=== PATIENT | female | born 1945 | race Caucasian/White ===

== ENCOUNTER 2019-04-18 07:00 | Day surgery (SDC) | payer MEDICARE, MEDICAID ==
[~2019-04-18] VITALS: Ht 175.3 cm; Wt 96.2 kg
[2019-04-18] VITALS (8 sets, daily range): BP systolic 114–144; BP diastolic 58–87
[~2019-04-18 07:00] MED LIST: HYDR-4383 PO; MULT-15 PO; PHEN-786 PO; ZOLP5TAB2 PO
[2019-04-18] MEDS ORDERED: SPIR50TA5 PO (07:55)
[2019-04-18] MEDS ORDERED: FURO-150 PO (07:55)
[2019-04-18] MEDS ORDERED: albumin 25% 100mL bottle x 1 IV PRN (08:10)
[2019-04-18] MEDS ORDERED: normal saline 1000ml 1,000 ML IV PRN (08:10)
== END 2019-04-18 10:15 | disposition home or self-care (01) ==
LOC: SSTAY O 07:00
PROVIDERS: ATTEND Radiology Diagnostic Radiology
DX: R18.8 Other ascites (principal); K74.60 Unspecified cirrhosis of liver; Z90.49 Acquired absence of other specified parts of digestive tract; Z88.8 Allergy status to other drugs, medicaments and biological substances; Z79.899 Other long term (current) drug therapy; Z86.19 Personal history of other infectious and parasitic diseases
CPT/HCPCS: 49083; C1729; J7030

== ENCOUNTER 2019-04-30 07:55 | Day surgery (SDC) | payer MEDICARE, MEDICAID ==
[2019-04-30] VITALS (7 sets, daily range): BP systolic 123–160; BP diastolic 59–76
[~2019-04-30] VITALS: Ht 175.3 cm; Wt 96.5 kg
[~2019-04-30 07:55] MED LIST changes: +FURO-150 PO; -HYDR-4383 PO; -PHEN-786 PO; +SPIR50TA5 PO; -ZOLP5TAB2 PO
[2019-04-30] MEDS ORDERED: albumin 25% 100mL bottle x 1 IV PRN (08:20)
[2019-04-30] MEDS ORDERED: normal saline 1000ml 1,000 ML IV PRN (08:20)
== END 2019-04-30 09:39 | disposition home or self-care (01) ==
LOC: SSTAY O 07:55
PROVIDERS: ATTEND Radiology Diagnostic Radiology
DX: R18.8 Other ascites (principal); K74.60 Unspecified cirrhosis of liver; Z90.49 Acquired absence of other specified parts of digestive tract; Z79.899 Other long term (current) drug therapy; Z86.19 Personal history of other infectious and parasitic diseases; Z98.890 Other specified postprocedural states
CPT/HCPCS: 49083; C1729; J7030

== ENCOUNTER 2019-05-08 07:47 | Day surgery (SDC) | payer MEDICARE, MEDICAID ==
[~2019-05-08] VITALS: Ht 175.3 cm; Wt 97.5 kg
[2019-05-08] MEDS ORDERED: normal saline 1000ml 1,000 ML IV PRN (08:15)
[2019-05-08] MEDS ORDERED: albumin 25% 100mL bottle x 1 IV PRN (08:15)
[2019-05-08 08:23] VITALS: BP 148/80
[2019-05-08 09:00] VITALS: BP 129/67
[2019-05-08 09:15] VITALS: BP 120/68
[2019-05-08 09:30] VITALS: BP 130/66
[2019-05-08 09:45] VITALS: BP 134/73
== END 2019-05-08 10:10 | disposition home or self-care (01) ==
LOC: SSTAY O 07:47
PROVIDERS: ATTEND Radiology Vascular & Interventional Radiology
DX: R18.8 Other ascites (principal); K74.60 Unspecified cirrhosis of liver; Z90.49 Acquired absence of other specified parts of digestive tract; Z86.19 Personal history of other infectious and parasitic diseases; Z98.890 Other specified postprocedural states; Z88.8 Allergy status to other drugs, medicaments and biological substances; Z79.899 Other long term (current) drug therapy
CPT/HCPCS: 49083; C1729; J7030; P9047

== ENCOUNTER 2019-05-16 08:01 | Day surgery (SDC) | payer MEDICARE, MEDICAID ==
[~2019-05-16] VITALS: Ht 177.8 cm; Wt 96.3 kg
[~2019-05-16 08:01] MED LIST changes: -MULT-15 PO
[2019-05-16 08:38] VITALS: BP 116/66
[2019-05-16] MEDS ORDERED: albumin 25% 100mL bottle x 1 IV PRN (08:45)
[2019-05-16] MEDS ORDERED: normal saline 1000ml 1,000 ML IV PRN (08:45)
[2019-05-16 09:08] VITALS: BP 118/58
[2019-05-16 09:23] VITALS: BP 128/61
[2019-05-16 09:38] VITALS: BP 113/65
[2019-05-16 09:53] VITALS: BP 123/65
== END 2019-05-16 10:00 | disposition home or self-care (01) ==
LOC: SSTAY O 08:01
PROVIDERS: ATTEND Radiology Diagnostic Radiology
DX: K74.60 Unspecified cirrhosis of liver (principal); R18.8 Other ascites; Z86.19 Personal history of other infectious and parasitic diseases; Z98.890 Other specified postprocedural states; Z90.49 Acquired absence of other specified parts of digestive tract; Z79.899 Other long term (current) drug therapy; Z88.8 Allergy status to other drugs, medicaments and biological substances
CPT/HCPCS: 49083; C1729; J7030

== ENCOUNTER 2019-05-20 08:03 | Day surgery (SDC) | payer MEDICARE, MEDICAID ==
[~2019-05-20] VITALS: Ht 175.3 cm; Wt 94.3 kg
[2019-05-20 08:35] VITALS: BP 124/53
[2019-05-20 09:03] VITALS: BP 124/53
[2019-05-20 09:05] VITALS: BP 132/52
[2019-05-20 09:15] VITALS: BP 131/49
[2019-05-20 09:30] VITALS: BP 148/65
== END 2019-05-20 09:55 | disposition home or self-care (01) ==
LOC: SSTAY O 08:03
PROVIDERS: ATTEND Radiology Diagnostic Radiology
DX: R18.8 Other ascites (principal); K74.60 Unspecified cirrhosis of liver; G47.00 Insomnia, unspecified; Z86.19 Personal history of other infectious and parasitic diseases; Z79.899 Other long term (current) drug therapy; Z88.8 Allergy status to other drugs, medicaments and biological substances
CPT/HCPCS: 49083; C1729

== ENCOUNTER 2019-06-20 11:28 | Inpatient (IN) | payer MEDICARE, MEDICAID ==
[~2019-06-20] VITALS: Ht 175.3 cm; Wt 107.3 kg
[2019-06-20] MEDS ORDERED: furosemide 10 MG/1 ML 10ml inj IV ONE (11:55)
[2019-06-20 12:00] LABS: BASOPHILS % (AUTO) 0.2 % (0-1); EOSINOPHILS % (AUTO) 0.2 % (0-6); HEMATOCRIT 34.9 % (35.0-45.0); HEMOGLOBIN 11.9 g/dl (12.0-16.0); LYMPHOCYTES # (AUTO) 0.5 X10'3 (1.1-4.8); LYMPHOCYTES % (AUTO) 5.1 % (21-51); MEAN CORPUSCULAR HEMOGLOBIN 36.1 PG (27.0-31.0); MEAN CORPUSCULAR VOLUME 106.2 FL (78-98); MEAN PLATELET VOLUME 8.1 FL (7.4-10.4); NEUTROPHILS # (AUTO) 8.4 X10'3 (1.8-7.7); NEUTROPHILS % (AUTO) 84.5 % (42-75); PLATELET COUNT 94 X10'3 (140-440); RED BLOOD COUNT 3.29 X10'6 (4.20-5.60); WHITE BLOOD COUNT 9.9 X10'3 (4.5-11.0)
[2019-06-20] MEDS ORDERED: furosemide 20 MG/2 ML vial IV ONE (12:00)
[2019-06-20 12:12] LABS: ALANINE AMINOTRANSFERASE 146 U/L (12-78); ALBUMIN 2.3 G/DL (3.4-5.0); ALKALINE PHOSPHATASE 131 IU/L (46-116); ANION GAP 17 (8-16); ASPARTATE AMINO TRANSFERASE 288 U/L (10-37); BILIRUBIN,TOTAL 4.6 MG/DL (0.1-1.0); BLOOD UREA NITROGEN 75 MG/DL (7-18); BUN/CREATININE RATIO 25.5 (6.6-38.0); CALCIUM 8.9 MG/DL (8.5-10.1); CHLORIDE 94 MMOL/L (99-107); CREATININE 2.94 MG/DL (0.40-0.90); SODIUM 126 MMOL/L (135-145); TOTAL CARBON DIOXIDE 15.5 MMOL/L (24-32); eGFR 16 ML/MIN
[2019-06-20 12:15] LABS: GLUCOSE 144 MG/DL (70-104); TOTAL PROTEIN 7.1 G/DL (6.4-8.2)
[2019-06-20 12:23] LABS: ALBUMIN/GLOBULIN RATIO 0.5 (1.1-1.5); POTASSIUM 7.1 MMOL/L (3.5-5.1)
[2019-06-20 12:37] LABS: CLARITY,URINE SLIGHTLY CLOUDY (Clear); COLOR,URINE YELLOW (Yellow); GLUCOSE, URINE NEGATIVE (Neg); KETONES,URINE TRACE mg/dl (Neg); LEUKOCYTE ESTERASE ,URINE NEGATIVE (Neg); NITRITES, URINE NEGATIVE (Neg); OCCULT BLOOD,URINE NEGATIVE (Neg); PROTEIN,URINE TRACE mg/dl (Neg); UA COLLECTION TYPE STRAIGHT CATH; UROBILINOGEN,URINE 0.2 E.U/dL (0.2-1.0)
[2019-06-20] MEDS ORDERED: insulin regular, human 10 units/0.1 ml syringe IV ONE ×2 (12:40→17:20)
[2019-06-20] MEDS ORDERED: sodium polystyrene sulfonate 15gm/60ml oral suspension PO ONE ×2 (12:40→16:45)
[2019-06-20 12:45] LABS: SQUAMOUS EPITHELIAL CELL,UR MANY /LPF (FEW)
[2019-06-20 12:46] LABS: AMORPHOUS URATES 1+
[2019-06-20 12:47] LABS: TRANSITIONAL EPI CELLS,URINE FEW /HPF
[2019-06-20 12:48] LABS: RBC,URINE 0-2 /HPF (0-2)
[2019-06-20 12:49] LABS: BACTERIA,URINE FEW /HPF (Neg)
[2019-06-20] MEDS ORDERED: NO HOME MEDS ×2 (12:50→12:59)
[2019-06-20 12:55] LABS: CAL OXALATE CRYSTALS 1+ /HPF (NEGATIVE)
[2019-06-20] MEDS ORDERED: FURO-150 PO (13:03)
[2019-06-20] MEDS ORDERED: SPIR50TA5 PO (13:03)
[2019-06-20] MEDS ORDERED: NYSPWD TP (13:03)
[2019-06-20] MEDS ORDERED: MULT1TAB74 PO (13:03)
[2019-06-20] MEDS ORDERED: calcium chloride 100 MG/1 ML inj IV ONE ×2 (13:05→17:20)
[2019-06-20] MEDS ORDERED: calcium chloride inj. 1,000 MG in normal saline 100ml IV soln 90 ML IV ONE ×2 (13:10→17:30)
[2019-06-20] MEDS ORDERED: normal saline 1000ml 1,000 ML IV SCH (13:19)
[2019-06-20] MEDS ORDERED: morphine 2 MG/ML inj. syringe IV PRN (13:20)
[2019-06-20] MEDS ORDERED: docusate sod 100mg capsule PO PRN (13:20)
[2019-06-20] MEDS ORDERED: acetaminophen 325mg tablet PO PRN ×2 (13:20)
[2019-06-20] MEDS ORDERED: HYDROcodone/acetaminophen 5mg/325mg tablet PO PRN (13:20)
--- NOTE | 2019-06-20 13:27 | NUR ---
calcium bag not available in the omni.
--- NOTE | 2019-06-20 13:33 | NUR ---
calcium chloride running 100ml/hour.No reported discomfort at this time.
[2019-06-20] MEDS ORDERED: dextrose 50%-water 50ml dispensing syringe IV ONE ×2 (14:15→17:20)
--- NOTE | 2019-06-20 14:24 | NUR ---
Received report from Adis RUBIO RN.
[2019-06-20 14:30] VITALS: BP 140/50
--- NOTE | 2019-06-20 14:30 | NUR ---
Patient arrived to room 314 at this time
--- NOTE | 2019-06-20 15:52 | NUR ---
Hamzah hospitalist, "Yamel [id number]- 314 V[address] [place]-redraw of POTASSIUM (K+) after insulin and D5 was critical at 6.6."
--- NOTE | 2019-06-20 16:41 | NUR ---
Hamzah hospitalist, "Yamel [address] [place]. high K+ 6.6 resulted. Orders?" Received callback, Dr. Ledesma states to give an additional 30 gm Kayexalate x 1.
[2019-06-20 18:00] VITALS: BP 125/39
--- NOTE | 2019-06-20 18:00 | NUR ---
Patient in room MED 314. I have received report from RIA Montesinos and had the opportunity to ask questions and assume patient care.
--- NOTE | 2019-06-20 18:15 | NUR ---
Problems reprioritized. Patient report given, questions answered & plan of care reviewed with Anum ROLLINS.
--- NOTE | 2019-06-20 18:34 | NUR ---
Orientee documentation and medication administration: I have reviewed and agree with all interventions, assessments performed and documented by Candelaria ROLLINS.
[2019-06-20] MEDS ORDERED: heparin, porcine 5000 units/ml vial SQ SCH (20:00)
[2019-06-20] MEDS ORDERED: temazepam 15mg capsule PO PRN (21:00)
[2019-06-20 22:00] VITALS: BP 137/40
--- NOTE | 2019-06-20 22:29 | NUR ---
Called Dr. Dozier regarding critical K 6.2 after two rounds of keyexalate cocktail. Pt hasn't had a BM. Per Dr. Dozier, wait for couple hours, if pt does not produce a BM, give a third round of keyexalate.
[2019-06-20] MEDS: ondansetron/PF 4mg/2ml inj IV PRN (23:56)
[2019-06-21] MEDS ORDERED: calcium chloride 100 MG/1 ML inj IV ONE (00:30)
[2019-06-21] MEDS ORDERED: dextrose 50%-water 50ml dispensing syringe IV ONE (00:30)
[2019-06-21] MEDS ORDERED: sodium polystyrene sulfonate 15gm/60ml oral suspension PO ONE ×3 (00:30→08:50)
[2019-06-21] MEDS ORDERED: insulin regular, human 10 units/0.1 ml syringe IV ONE (00:30)
[2019-06-21 02:00] VITALS: BP 135/45
[2019-06-21 05:34] LABS: BASOPHILS % (AUTO) 0.2 % (0-1); EOSINOPHILS % (AUTO) 0.2 % (0-6); HEMATOCRIT 33.6 % (35.0-45.0); HEMOGLOBIN 11.5 g/dl (12.0-16.0); LYMPHOCYTES # (AUTO) 0.8 X10'3 (1.1-4.8); LYMPHOCYTES % (AUTO) 7.1 % (21-51); MEAN CORPUSCULAR HGB CONC 34.2 g/dL (33.0-36.5); MEAN CORPUSCULAR VOLUME 105.4 FL (78-98); MEAN PLATELET VOLUME 8.4 FL (7.4-10.4); MONOCYTES # (AUTO) 1.4 X10'3 (0-0.9); MONOCYTES % (AUTO) 12.6 % (2-12); NEUTROPHILS # (AUTO) 9.1 X10'3 (1.8-7.7); NEUTROPHILS % (AUTO) 79.9 % (42-75); PLATELET COUNT 59 X10'3 (140-440); RED BLOOD COUNT 3.19 X10'6 (4.20-5.60); RED CELL DISTRIBUTION WIDTH 14.8 % (11.5-14.5); WHITE BLOOD COUNT 11.4 X10'3 (4.5-11.0)
[2019-06-21 05:36] LABS: ALANINE AMINOTRANSFERASE 684 U/L (12-78); ALKALINE PHOSPHATASE 126 IU/L (46-116); ANION GAP 9 (8-16); BILIRUBIN,TOTAL 3.7 MG/DL (0.1-1.0); BLOOD UREA NITROGEN 78 MG/DL (7-18); BUN/CREATININE RATIO 27.6 (6.6-38.0); CALCIUM 10.6 MG/DL (8.5-10.1); CHLORIDE 98 MMOL/L (99-107); CREATININE 2.83 MG/DL (0.40-0.90); SODIUM 128 MMOL/L (135-145); eGFR 16 ML/MIN
[2019-06-21 05:41] LABS: ASPARTATE AMINO TRANSFERASE 1650 U/L (10-37); GLUCOSE 118 MG/DL (70-104)
[2019-06-21 05:48] LABS: ALBUMIN/GLOBULIN RATIO 0.5 (1.1-1.5); TOTAL PROTEIN 6.3 G/DL (6.4-8.2)
--- NOTE | 2019-06-21 06:00 | NUR ---
Problems reprioritized. Patient report given, questions answered & plan of care reviewed with RIA Montesinos.
--- NOTE | 2019-06-21 06:00 | NUR ---
Problems reprioritized. Patient report given, questions answered & plan of care reviewed with RIA Montesinos.
--- NOTE | 2019-06-21 06:23 | NUR ---
PAGER ID: [phone] MESSAGE: [phone]: FRANCISCA - nadia k 6.0. has received x3 rounds of cocktail (insulin, d50, kayexalate, calcium). please advise. thank you nurse gabi pearce [phone]
--- NOTE | 2019-06-21 06:28 | NUR ---
Dr. Dozier called back. new orders received: kayexelate enema, increase NS to 100 mL/hr, reglan 10mg q6h prn. Will continue to monitor
[2019-06-21] MEDS ORDERED: sodium polystyrene sulfonate ENEMA 30gm/120ml RC ONE (06:30)
[2019-06-21] MEDS ORDERED: metoclopramide 5 mg/ml inj IV PRN (06:30)
[2019-06-21] MEDS ORDERED: normal saline 1000ml 1,000 ML IV SCH (06:30)
[2019-06-21 06:59] VITALS: BP 124/37
[2019-06-21 07:09] LABS: LARGE PLATELETS FEW; PLATELET ESTIMATE DECREASED; POLYCHROMASIA 1+
[2019-06-21 07:10] LABS: ANISOCYTOSIS 1+; POIKILOCYTOSIS FEW
[2019-06-21] MEDS ORDERED: furosemide 40mg/4ml inj IV SCH (08:00)
--- NOTE | 2019-06-21 08:57 | NUR ---
Paged hospitalist, "Yamel [phone]- On ACCE 314 [address] [place]- We just administer kayexalate rectally, do you still want the oral kayexalate?"
--- NOTE | 2019-06-21 09:19 | NUR ---
MAGU AT BEDSIDE. NEW ORDERS RECEIVED: TEST EMESIS FOR OCCULT, KUB D/T EMESIS, ADB PAIN. WILL CONTINUE TO MONITOR RADIOLOGY PAGED EMESIS SAMPLE SENT TO LAB
[2019-06-21 09:35] LABS: GASTRIC OCCULT BLOOD POSITIVE (Neg)
--- NOTE | 2019-06-21 09:52 | NUR ---
PAGER ID: [phone] MESSAGE: [phone]: FRANCISCA HAMILTON TAKEN. NG TUBE? NURSE MARIANELA EXT [phone]
--- NOTE | 2019-06-21 10:14 | NUR ---
Holding Kayexalate at this time r/t gurgling and frequent emesis. Waiting for further instruction from Dr. Ledesma. Close friend at bedside. Will administer Zofran IV for nausea. Swabbing her mouth to maintain moist mucous membranes since she's not drinking.
[2019-06-21] MEDS ORDERED: CefTRIAXone 2gm/D5W 50ml 50 ML IV ONE (10:35)
--- NOTE | 2019-06-21 10:52 | NUR ---
Pt with low Albert of 10. Per physical assessment pt with pressure area to bilat buttock and excoriated/reddened perianal region. Pt currently NPO at this time with frequent emesis receiving Zofran PRN. Will continue to follow and monitor need for additional protein pending diet advancement. Addendum: 06/21/19 at [address] Amended: Links added.
[2019-06-21 11:00] VITALS: BP 109/34
[2019-06-21] MEDS: ondansetron/PF 4mg/2ml inj IV PRN (11:17)
--- NOTE | 2019-06-21 11:45 | NUR ---
Inserted Nasogastric tube at this time, placed on low intermittent suction. 400 ml dark brown fluid retrieved immediately. Will cont. to monitor. Patient states that she feels better now, no nausea.
--- NOTE | 2019-06-21 11:54 | NUR ---
PAGER ID: [phone] MESSAGE: CHERYL #[phone]. It's his answering services but they will relay the message. on-call nurses have already given Cheryl an heads up about the patient. he is just waiting for your call. thank you [phone]
--- NOTE | 2019-06-21 12:13 | NUR ---
Paged hospitalist," Yamel [phone] on ACCE unit- Room 314 [place] resulted critical Lactic Acid 7.9" Waiting on hospitalist orders
--- NOTE | 2019-06-21 12:14 | NUR ---
Received callback from hospitalist re: critical lactic acid, no new orders at this time.
--- NOTE | 2019-06-21 15:05 | NUR ---
Made aware of Crit. K+ 7.1 (up from previous) and increased Lactic Acid of 11. Dr. Rich receving patient care.
[2019-06-21 15:06] VITALS: BP 89/25
--- NOTE | 2019-06-21 15:20 | NUR ---
Suctioned patient, noted gurgle was deep. Celina friend/sister at bedside. [employer]ING [employer] FOLDING MACHINE OPERATOR arrived to transport patient to critical care. Celina aware of transfer to ICU.
[2019-06-21] MEDS ORDERED: LORazepam 2 mg/ml vial IV PRN (15:45)
[2019-06-21] MEDS ORDERED: scopolamine 1.5mg patch.TD72 TD SCH (15:45)
--- NOTE | 2019-06-21 15:46 | NUR ---
Received call from ICU that Justin Monteiro wishes to make patient COMFORT CARE.
--- NOTE | 2019-06-21 15:50 | NUR ---
Patient arrived back to unit from ACCE with plan for comfort care and to dismiss all extreme measures.
--- NOTE | 2019-06-21 15:53 | NUR ---
Dr. Rich asked [facility] and [facility] a [facility], reportedly hyperkalemia with sepsis. Upon arrival to 314, patient found to be draining copious amounts of dark NG drainage. Large abdomen, and pitting edema. Hypotensive with MAP in 50's. HR 90's. Patient is unresponsive except moaning. Bedside nurse, Yamel, reports patient is DNR and "wishes to have measures until all options are exhausted, then comfort care if necessary". Bring patient to 2046, Dr. Rich arrives as Michael Hathaway is suctioning blood from NG and oral. Candelaria is listening to lungs, heart and abdomen, reportedly no bowel sounds. Large abdomen again noted. Robson and Zee are placing electrodes and oxygen. I am holding patient's legs for catheter insertion by Elsa. Dr. Rich wishes to place a central line and intubate. Chelly, Charge nurse from [facility] is at bedside and states there is an advance directive. I found advance directive and contacted Kassandra, her primary decision maker. Kassandra states over the phone that the patient has stated to her she does not want extreme measures "not even an IV, or oxygen". I place POA on hold, and inform Dr. Rich of patient wishes as stated by Kassandra. Dr. Rich communicates with Kassandra via phone call. After, he states patient is to be made comfort care and move her back to ACCE unit. Patient moved back to room 314, ACCE on ICU bed.
[2019-06-21 15:56] VITALS: BP 78/26
[2019-06-21] MEDS ORDERED: lactulose 20gm/30ml cup PO SCH (16:00)
[2019-06-21] MEDS: morphine 2 MG/ML inj. syringe IV PRN ×2 (16:17→17:23)
--- NOTE | 2019-06-21 16:48 | NUR ---
Patient HR slowing down, HR currently 35-40 bpm. Patient appears to be very comfortable after Morphine 2 mg IVP was given. No labored breathing but respirations have slowed to 8 breaths per minute.
--- NOTE | 2019-06-21 17:40 | NUR ---
Paged hospitalist, "Yamel [phone]- Patient in 314 [place], Vero has passed. Friends at bedside." Hospitalist states she's on her way.
--- NOTE | 2019-06-21 17:45 | NUR ---
RN IS TO DOCUMENT YES TO ALL APPLICABLE AREAS Pronouncement of : 1. Time Physician Notified:[id number] 2. Date of :06/21/19 3. Time of : 1739 4. DNR/Withdraw life support documented: 06/21/19 6494 5. Monitor strip has been placed on chart: Yes 6. Assessment process is of one-minute duration and includes following criteria: a) Patient is unresponsive to all stimuli: Yes b) Pupils fixed and non-reactive: Yes c) Auscultation of precordium reveals absence of heart tones: Yes d) Auscultation of lungs reveals absence of breath sounds: Yes e) Absence of blood pressure / all vital signs: Yes f) QRS complexes are not present on monitor / EKG strip: Yes g) Pacer spikes without capture: N/A 4. Comments: Medical POA & friend at bedside
[2019-06-22] MEDS ORDERED: CefTRIAXone 2gm/D5W 50ml 50 ML IV SCH (08:00)
== END 2019-06-21 18:46 | disposition expired | DRG 682 ==
LOC: ER 11:29 → MED 3N 14:49 → ICU 2S 06-21 15:32 → MED 3N 06-21 16:05
PROVIDERS: ADMIT Internal Medicine; ATTEND Internal Medicine
DX: N17.9 Acute kidney failure, unspecified (principal); K65.2 Spontaneous bacterial peritonitis; E87.1 Hypo-osmolality and hyponatremia; G93.40 Encephalopathy, unspecified; R18.8 Other ascites; E87.2 Acidosis; K72.10 Chronic hepatic failure without coma; K74.60 Unspecified cirrhosis of liver; B19.20 Unspecified viral hepatitis C without hepatic coma; D64.9 Anemia, unspecified; D69.6 Thrombocytopenia, unspecified; E87.5 Hyperkalemia; J44.9 Chronic obstructive pulmonary disease, unspecified; Z66 Do not resuscitate; G89.29 Other chronic pain; Z51.5 Encounter for palliative care; I95.9 Hypotension, unspecified; M54.9 Dorsalgia, unspecified; R74.8 Abnormal levels of other serum enzymes; Z87.891 Personal history of nicotine dependence; Z88.8 Allergy status to other drugs, medicaments and biological substances; Z90.49 Acquired absence of other specified parts of digestive tract; Z79.899 Other long term (current) drug therapy
CPT/HCPCS: 36415; 71045; 74018; 76775; 80053; 81001; 82140; 82271; 82948; 83605; 84132; 85025; 87040; 87081; 87088; 93005; 93306; 96365; 96375; 99291; G0378; J0696; J1815; J1940; J2270; J2405; J2765; J7030